=== PATIENT | female | born 1945 | race Caucasian/White ===

== ENCOUNTER → 2016-07-20 | Outpatient (CLI) | payer OTHER, BC ==
[~2016-07-20] MED LIST: ALBUTEROL2.5 MG/0.5 INH; CELEBREX 200 M200 M1 PO; DULERA 200 MCG/13 GM PO; DYRENIUM50 MG PO; LEVOTHYROXIN0.088 MG PO; MEDROLDOSEPACK PO; PRILOSEC20 MG PO; SPIRIVA INH; VENTOLIN HFA 1818 GM INH
== END ==
LOC: RAD 10:22
DX: M85.80 Other specified disorders of bone density and structure, unspecified site (principal); M25.512 Pain in left shoulder; M25.511 Pain in right shoulder

== ENCOUNTER → 2016-08-17 | Outpatient (CLI) | payer OTHER, BC | LOC: RAD 10:17 | DX: R06.02 Shortness of breath (principal) ==